=== PATIENT | female | born 1965 | race Caucasian/White ===

== ENCOUNTER 2020-05-26 16:00 | Emergency (ER) | payer BC, OTHER ==
[~2020-05-26] VITALS: Ht 167 cm; Wt 95.0 kg
--- NOTE | 2020-05-26 16:12 | ED General ---
General Stated Complaint: DIZZINESS;HEART PALPITATIONS Source of Information: Patient Exam Limitations: No Limitations History of Present Illness Date Seen by Provider: May 26, 2020 Time Seen by Provider: 16:10 Initial Comments To ER with reports of dizziness heart palpitations. She is tearful. Does not have chest pain. She began feeling short of breath as well when she was visiting [place] last week. She went to the emergency room in [place]. She believes this is related to her hormones, she would like her estrogen level checked. She does have history of anxiety and depression, took a 0.5 mg Xanax one hour before she got here. No cough no fever. Timing/Duration: 1-2 Days Severity: Moderate Associated Systoms: Shortness of Air Allergies and Home Medications Patient Home Medication List Home Medication List Reviewed: Yes Review of Systems Review of Systems Constitutional: see HPI EENTM: see HPI Respiratory: dyspnea on exertion Genitourinary: no symptoms reported Musculoskeletal: no symptoms reported Skin: no symptoms reported Psychiatric/Neurological: See HPI, Anxiety Hematologic/Lymphatic: No Symptoms Reported Past Kowicro-Hgsfoo-Ivpukv Hx Patient Social History Recent Foreign Travel: No Contact w/Someone Who Travel: No Physical Exam Vital Signs Vital Signs - First Documented 05/26/20 16:00 Temp 35.9 Pulse 86 Resp 18 B/P (MAP) 160/88 (112) Pulse Ox 97 O2 Delivery Room Air Capillary Refill : Height, Weight, BMI Height: '" Weight: lbs. oz. kg; BMI Method: General Appearance: WD/WN, Anxious, Other (very anxious, sobbing. Vitals are stable.) Eyes: Bilateral Eye Normal Inspection, Bilateral Eye PERRL, Bilateral Eye EOMI Neck: Full Range of Motion, Normal Inspection Respiratory: No Accessory Muscle Use, No Respiratory Distress Cardiovascular: Regular Rate, Rhythm, Normal Peripheral Pulses Gastrointestinal: Non Tender, Soft Extremity: Normal Capillary Refill, Normal Inspection Neurologic/Psychiatric: Alert, Oriented x3 Skin: Normal Color, Warm/Dry Progress/Results/Core Measures Suspected Sepsis SIRS Temperature: Pulse: Respiratory Rate: Laboratory Tests 05/26/20 16:20: White Blood Count 9.6 Blood Pressure / Mean: Laboratory Tests 05/26/20 16:20: Creatinine 0.80, Platelet Count 182, Total Bilirubin 0.7 Results/Orders Lab Results Laboratory Tests Test 05/26/20 16:20 Range/Units White Blood Count 9.6 4.3-11.0 10^3/uL Red Blood Count 4.61 3.80-5.11 10^6/uL Hemoglobin 14.2 11.5-16.0 g/dL Hematocrit 41 35-52 % Mean Corpuscular Volume 90 80-99 fL Mean Corpuscular Hemoglobin 31 25-34 pg Mean Corpuscular Hemoglobin Concent 34 32-36 g/dL Red Cell Distribution Width 12.6 10.0-14.5 % Platelet Count 182 130-400 10^3/uL Mean Platelet Volume 10.9 9.0-12.2 fL Immature Granulocyte % (Auto) 0 % Neutrophils (%) (Auto) 74 42-75 % Lymphocytes (%) (Auto) 19 12-44 % Monocytes (%) (Auto) 6 0-12 % Eosinophils (%) (Auto) 1 0-10 % Basophils (%) (Auto) 0 0-10 % Neutrophils # (Auto) 7.1 1.8-7.8 10^3/uL Lymphocytes # (Auto) 1.9 1.0-4.0 10^3/uL Monocytes # (Auto) 0.5 0.0-1.0 10^3/uL Eosinophils # (Auto) 0.1 0.0-0.3 10^3/uL Basophils # (Auto) 0.0 0.0-0.1 10^3/uL Immature Granulocyte # (Auto) 0.0 0.0-0.1 10^3/uL D-Dimer <= 0.27 0.00-0.49 UG/ML Sodium Level 137 135-145 MMOL/L Potassium Level 3.5 L 3.6-5.0 MMOL/L Chloride Level 103 98-107 MMOL/L Carbon Dioxide Level 22 21-32 MMOL/L Anion Gap 12 5-14 MMOL/L Blood Urea Nitrogen 8 7-18 MG/DL Creatinine 0.80 0.60-1.30 MG/DL Estimat Glomerular Filtration Rate > 60 BUN/Creatinine Ratio 10 Glucose Level 112 H 70-105 MG/DL Calcium Level 10.0 8.5-10.1 MG/DL Corrected Calcium 9.8 8.5-10.1 MG/DL Total Bilirubin 0.7 0.1-1.0 MG/DL Aspartate Amino Transf (AST/SGOT) 18 5-34 U/L Alanine Aminotransferase (ALT/SGPT) 26 0-55 U/L Alkaline Phosphatase 46 40-136 U/L Troponin I < 0.028 <0.028 NG/ML B-Type Natriuretic Peptide 17.7 <100.0 PG/ML Total Protein 6.9 6.4-8.2 GM/DL Albumin 4.3 3.2-4.5 GM/DL Thyroid Stimulating Hormone (TSH) 0.85 0.35-4.94 UIU/ML Free Thyroxine 0.97 0.70-1.48 NG/DL My Orders Orders - BOGDAN CALIX APRN Cbc With Automated Diff (05/26/20 16:09) Comprehensive Metabolic Panel (05/26/20 16:09) Thyroid Stimulating Hormone (05/26/20 16:09) Free T4 (Free Thyroxine) (05/26/20 16:09) Ed Iv/Invasive Line Start (05/26/20 16:09) Chest 1 View, Ap/Pa Only (05/26/20 16:09) Troponin I (05/26/20 16:09) BNP (05/26/20 16:09) Fibrin Degradation Products (05/26/20 16:12) Vital Signs/I&O 05/26/20 05/26/20 16:00 16:00 Temp 35.9 Pulse 86 Resp 18 B/P (MAP) 160/88 (112) Pulse Ox 97 O2 Delivery Room Air Capillary Refill : Diagnostic Imaging Diagonstic Imaging: Xray Plain Films/CT/US/NM/MRI: chest Comments NAME: MADALYN ROQUE [facility] REC#: [id number] PT STATUS: REG ER : 1965 PHYSICIAN: BOGDAN CALIX APRN ADMIT DATE: 05/26/20/ER Signed Date of Exam:05/26/20 CHEST 1 VIEW, AP/PA ONLY INDICATION: Palpitations Frontal chest obtained at 05:03 p.m. Heart and mediastinal silhouette are normal in appearance. The lungs are clear. There is no pneumothorax or pleural fluid. IMPRESSION: Negative chest. Dictated by: Dictated on workstation # [id number] Dict: 05/26/201700 Trans: 05/26/201704 [facility] [id number] Interpreted by: LUBNA SALINAS MD Electronically signed by: LUBNA SALINAS MD 05/26/20 1701 Departure Communication (Admissions) 1803-much more calm. Discussed plan of care with her, she agrees to follow up with cardiology and pcp next week. Impression Primary Impression: Palpitations Additional Impression: Anxiety Disposition: HOME, SELF-CARE Condition: Improved Departure-Patient Inst. Decision time for Depature: 17:29 Referrals: MELBA COOK MD FACP [facility] Nica CUI MD, BASHAR J MD Patient Instructions: Anxiety, Adult (DC) Add. Discharge Instructions: Call your doctor Friday to make an appointment for follow-up. Return to ER for any concerns.It would be a good idea to see cardiology as well, call friday for an appointment. Continue current medications. BOGDAN CALIX APRN May 26, 2020 16:12
[2020-05-26 16:49] LABS: ALBUMIN 4.3 GM/DL (3.2-4.5)
[2020-05-26 16:50] LABS: CHLORIDE 103 MMOL/L (98-107); POTASSIUM 3.5 MMOL/L (3.6-5.0); SODIUM 137 MMOL/L (135-145)
[2020-05-26 16:51] LABS: BASOPHILS % (AUTO) 0 % (0-10); EOSINOPHILS # (AUTO) 0.1 10^3/uL (0.0-0.3); EOSINOPHILS % (AUTO) 1 % (0-10); HEMATOCRIT 41 % (35-52); HEMOGLOBIN 14.2 g/dL (11.5-16.0); LYMPHOCYTES # (AUTO) 1.9 10^3/uL (1.0-4.0); LYMPHOCYTES % (AUTO) 19 % (12-44); MEAN CORPUSCULAR HEMOGLOBIN 31 pg (25-34); MEAN CORPUSCULAR HGB CONC 34 g/dL (32-36); MEAN CORPUSCULAR VOLUME 90 fL (80-99); MEAN PLATELET VOLUME 10.9 fL (9.0-12.2); MONOCYTES # (AUTO) 0.5 10^3/uL (0.0-1.0); MONOCYTES % (AUTO) 6 % (0-12); NEUTROPHILS # (AUTO) 7.1 10^3/uL (1.8-7.8); NEUTROPHILS % (AUTO) 74 % (42-75); PLATELET COUNT 182 10^3/uL (130-400); WHITE BLOOD COUNT 9.6 10^3/uL (4.3-11.0)
[2020-05-26 16:52] LABS: GLUCOSE 112 MG/DL (70-105); TOTAL PROTEIN 6.9 GM/DL (6.4-8.2)
[2020-05-26 16:53] LABS: CARBON DIOXIDE 22 MMOL/L (21-32)
[2020-05-26 16:54] LABS: BILIRUBIN,TOTAL 0.7 MG/DL (0.1-1.0)
[2020-05-26 16:55] LABS: ALKALINE PHOSPHATASE 46 U/L (40-136)
[2020-05-26 16:56] LABS: GFR ESTIMATED > 60
[2020-05-26 16:57] LABS: BUN/CREATININE RATIO 10
[2020-05-26 16:58] LABS: ALANINE AMINOTRANSFERASE 26 U/L (0-55)
--- NOTE | 2020-05-26 17:04 | Diagnostic Imaging Report ---
INDICATION: Palpitations Frontal chest obtained at 05:03 p.m. Heart and mediastinal silhouette are normal in appearance. The lungs are clear. There is no pneumothorax or pleural fluid. IMPRESSION: Negative chest. Dictated by: Dictated on workstation # [id number]
[2020-05-26 17:19] LABS: FREE T4 (FREE THYROXINE) 0.97 NG/DL (0.70-1.48)
[2020-05-26 18:24] VITALS: BP 168/98
== END 2020-05-26 18:20 | disposition home or self-care (01) ==
LOC: ER 16:06
DX: F41.9 Anxiety disorder, unspecified (principal); F32.9 Major depressive disorder, single episode, unspecified
CPT/HCPCS: 36415; 71045; 80053; 83880; 84439; 84443; 84484; 85025; 85379